=== PATIENT | male | born 1970 | race Caucasian/White ===

== ENCOUNTER 2016-10-13 17:26 | Emergency (ER) | payer OTHER ==
[~2016-10-13] VITALS: Ht 180.3 cm; Wt 124.5 kg
[~2016-10-13 17:26] MED LIST: BENADRYL ALLERG25 MG PO; BENADRYL25 MG PO; DIAZEPAM5 MG PO; FLOMAX0.4 MG PO; KEFLEX500 MG PO; LAMICTAL200 MG PO; LAMICTAL25 MG PO; LISINOPRIL40 MG PO; MECLIZINE HCL25 MG PO; NAPROXEN500 MG PO; NORCO 5/3251 TABLET PO; OSTEO BI-FLEX1 EAC2 PO; PLAVIX75 MG PO; SIMVASTATIN20 MG PO; TRILEPTAL300 MG PO; TRILEPTAL600 MG; TRILEPTAL600 MG PO; VALIUM5 MG PO; ZESTRIL40 MG PO; ZOCOR20 MG PO
[2016-10-13 17:48] VITALS: BP 130/91
[2016-10-13] MEDS ORDERED: LIDODERM 5% P1 PATCH TD (18:32)
[2016-10-13] MEDS ORDERED: FLEXERIL10 MG PO (18:32)
[2016-10-13] MEDS ORDERED: NAPROXEN500 MG PO (18:32)
== END 2016-10-13 19:33 | disposition home or self-care (01) ==
LOC: EME 17:26
DX: M54.5 Low back pain (principal); I10 Essential (primary) hypertension; G40.909 Epilepsy, unspecified, not intractable, without status epilepticus
CPT/HCPCS: 99281; 99283

== ENCOUNTER 2017-01-23 18:08 | Emergency (ER) | payer OTHER ==
[~2017-01-23] VITALS: Ht 180.3 cm; Wt 123.2 kg
[~2017-01-23 18:08] MED LIST changes: +FLEXERIL10 MG PO; +LIDODERM 5% P1 PATCH TD
[2017-01-23 18:26] LABS: POINT-OF-CARE METER ID UU13113747
[2017-01-23 18:39] LABS: EOSINOPHIL (%) 0.5 % (0-5); IMMATURE GRANULOCYTE (%) 0.3 % (0.0-0.7); LYMPHOCYTE COUNT 1.5 K/uL (1.0-2.8); MCH 31.5 PG (29.0-34.0); MCHC 34.5 G/DL (30.0-36.0); MCV 91.3 FL (86-99); MEAN PLAT.VOLUME 8.9 uM^3 (9.0-12.4); MONOCYTE (%) 5.7 % (3-12); MONOCYTE COUNT 0.3 K/uL (0-0.8); NEUTROPHIL (%) 67.6 % (45-76); PLATELET COUNT 217 K/uL (156-360); RBC DIS.WIDTH-CV 11.6 % (11.8-14.6); RBC DIS.WIDTH-SD 38.8 % (39-53); RED BLOOD COUNT 4.82 M/uL (4.00-5.50); WHITE BLOOD COUNT 5.9 K/uL (4.1-10.2)
[2017-01-23 18:56] LABS: CHLORIDE 102 mEq/L (99-109); POTASSIUM 3.9 mEq/L (3.7-5.4); SODIUM 136 mEq/L (136-147)
[2017-01-23 18:58] LABS: GLUCOSE 124 mg/dL (70-99)
[2017-01-23 18:59] LABS: ANION GAP 11 MEQ/L (2-14)
[2017-01-23 19:01] LABS: GFR ESTIMATE (CALCULATED) > 59 mL/min/
[2017-01-23 19:02] LABS: UREA NITROGEN (BUN) 11 mg/dL (9-23)
[2017-01-23 19:43] LABS: SAMPLE HEMOLYSIS CHECK 0; SAMPLE ICTERIC CHECK 0; SAMPLE LIPEMIA CHECK 0
[2017-01-23] MEDS ORDERED: KEPPRA1000 MG PO (21:04)
[2017-01-23] MEDS ORDERED: TRILEPTAL300 MG PO (21:06)
[2017-01-23 21:15] VITALS: BP 119/87
== END 2017-01-23 21:30 | disposition home or self-care (01) ==
LOC: EME 18:08
PROVIDERS: Emergency Medicine
DX: R56.9 Unspecified convulsions (principal); E78.5 Hyperlipidemia, unspecified; I10 Essential (primary) hypertension
CPT/HCPCS: 80048; 80156; 82948; 85025; 99281; 99284; J2405

== ENCOUNTER 2017-02-03 18:36 | Emergency (ER) | payer OTHER ==
[~2017-02-03] VITALS: Ht 180.3 cm; Wt 122.7 kg
[~2017-02-03 18:36] MED LIST changes: +KEPPRA1000 MG PO
[2017-02-03 19:58] LABS: MCH 31.9 PG (29.0-34.0); MCV 93.8 FL (86-99); MEAN PLAT.VOLUME 9.4 uM^3 (9.0-12.4); PLATELET COUNT 258 K/uL (156-360); RBC DIS.WIDTH-CV 11.9 % (11.8-14.6); RBC DIS.WIDTH-SD 40.7 % (39-53); RED BLOOD COUNT 5.01 M/uL (4.00-5.50); WHITE BLOOD COUNT 5.5 K/uL (4.1-10.2)
[2017-02-03 20:11] LABS: CHLORIDE 109 mEq/L (99-109)
[2017-02-03 20:12] LABS: POTASSIUM 4.1 mEq/L (3.7-5.4); SODIUM 142 mEq/L (136-147)
[2017-02-03 20:14] LABS: GLUCOSE 108 mg/dL (70-99)
[2017-02-03 20:15] LABS: ANION GAP 8 MEQ/L (2-14)
[2017-02-03 20:16] LABS: TOTAL BILIRUBIN 0.2 mg/dL (0.0-1.0)
[2017-02-03 20:17] LABS: ALKALINE PHOSPHATASE 100 IU/L (3-129); GFR ESTIMATE (CALCULATED) > 59 mL/min/
[2017-02-03 20:19] LABS: UREA NITROGEN (BUN) 14 mg/dL (9-23)
[2017-02-03 20:28] LABS: ADD MIUA? NO; BILIRUBIN NEGATIVE; BLOOD NEGATIVE; COLOR YELLOW ((YELLOW)); GLUCOSE (STRIP) NEGATIVE; KETONES NEGATIVE; LEUKOCYTES NEGATIVE; NITRITE NEGATIVE; PROTEIN (STRIP) NEGATIVE; SPECIFIC GRAVITY 1.023 (1.000-1.030); UCUL ADDED? NO; UROBILINOGEN 0.2 MG/DL (0.2-1.0)
[2017-02-03 22:50] VITALS: BP 165/85
== END 2017-02-03 22:51 | disposition home or self-care (01) ==
LOC: EME 18:36
DX: R19.7 Diarrhea, unspecified (principal); R11.2 Nausea with vomiting, unspecified; I10 Essential (primary) hypertension; E78.5 Hyperlipidemia, unspecified
CPT/HCPCS: 80053; 81003; 85027; 87493; 87506; 99281; 99284

== ENCOUNTER 2017-05-17 15:01 | Emergency (ER) | payer OTHER ==
[~2017-05-17] VITALS: Ht 180.3 cm; Wt 120.4 kg
[2017-05-17 15:51] VITALS: BP 141/95
[2017-05-17] MEDS ORDERED: NORCO 7.5/321 TABLET PO (18:31)
[2017-05-17] MEDS ORDERED: MOTRIN800 MG PO (18:31)
[2017-05-17] MEDS ORDERED: VALIUM5 MG PO (18:31)
== END 2017-05-17 18:38 | disposition home or self-care (01) ==
LOC: EME 15:01
DX: S29.012A Strain of muscle and tendon of back wall of thorax, initial encounter (principal); V59.50XA Passenger in pick-up truck or van injured in collision with unspecified motor vehicles in traffic accident, initial encounter; Y92.410 Unspecified street and highway as the place of occurrence of the external cause; M51.34 Other intervertebral disc degeneration, thoracic region
CPT/HCPCS: 72070

== ENCOUNTER 2017-11-16 11:40 | Emergency (ER) | payer OTHER ==
[~2017-11-16] VITALS: Ht 180.3 cm; Wt 122.1 kg
[~2017-11-16 11:40] MED LIST changes: +MOTRIN800 MG PO; +NORCO 7.5/321 TABLET PO
[2017-11-16 12:56] LABS: APPEARANCE CLEAR ((CLEAR)); BILIRUBIN NEGATIVE; BLOOD NEGATIVE; COLOR YELLOW ((YELLOW)); GLUCOSE (STRIP) NEGATIVE; KETONES NEGATIVE; LEUKOCYTES NEGATIVE; NITRITE NEGATIVE; PROTEIN (STRIP) NEGATIVE; SPECIFIC GRAVITY 1.023 (1.000-1.030); UCUL ADDED? NO; UROBILINOGEN 0.2 MG/DL (0.2-1.0)
[2017-11-16 14:17] VITALS: BP 130/85
== END 2017-11-16 14:19 | disposition home or self-care (01) ==
LOC: EME 11:40
PROVIDERS: Nurse Practitioner Family
DX: R33.9 Retention of urine, unspecified (principal); I10 Essential (primary) hypertension; E78.5 Hyperlipidemia, unspecified; R56.9 Unspecified convulsions; Z88.1 Allergy status to other antibiotic agents
CPT/HCPCS: 81003; 99281; 99283

== ENCOUNTER 2017-12-07 05:47 | Day surgery (SDC) | payer OTHER ==
[~2017-12-07] VITALS: Ht 180.3 cm; Wt 122.5 kg
[~2017-12-07 05:47] MED LIST changes: +KEPPRA500 MG PO
[2017-12-07 06:16] LABS: BASOPHIL (%) 0.6 % (0-1); EOSINOPHIL (%) 2.5 % (0-5); EOSINOPHIL COUNT 0.1 K/uL (0-0.3); HEMATOCRIT 47.5 % (38.0-50.0); HEMOGLOBIN 16.4 G/DL (12.5-16.6); IMMATURE GRANULOCYTE (%) 0.4 % (0.0-0.7); LYMPHOCYTE (%) 39.2 % (15-42); LYMPHOCYTE COUNT 2.1 K/uL (1.0-2.8); MCHC 34.5 G/DL (30.0-36.0); MCV 92.8 FL (86-99); MONOCYTE (%) 6.8 % (3-12); MONOCYTE COUNT 0.4 K/uL (0-0.8); NEUTROPHIL (%) 50.5 % (45-76); NEUTROPHIL COUNT 2.7 K/uL (1.8-6.4); PLATELET COUNT 241 K/uL (156-360); RBC DIS.WIDTH-CV 11.9 % (11.8-14.6); RBC DIS.WIDTH-SD 40.7 % (39-53); RED BLOOD COUNT 5.12 M/uL (4.00-5.50); WHITE BLOOD COUNT 5.3 K/uL (4.1-10.2)
[2017-12-07 06:25] LABS: ALBUMIN 4.7 g/dL (3.2-4.8); CHLORIDE 104 mEq/L (99-109); POTASSIUM 3.8 mEq/L (3.7-5.4); SODIUM 143 mEq/L (136-147)
[2017-12-07 06:28] LABS: GLUCOSE 104 mg/dL (70-99); TOTAL PROTEIN 7.9 g/dL (6.4-8.3)
[2017-12-07 06:29] LABS: TOTAL BILIRUBIN 0.6 mg/dL (0.0-1.0)
[2017-12-07 06:31] LABS: ALKALINE PHOSPHATASE 116 IU/L (3-129); CREATININE 1.1 mg/dL (0.6-1.3); GFR ESTIMATE (CALCULATED) > 59 mL/min/ (58.99-99999)
[2017-12-07 06:32] LABS: UREA NITROGEN (BUN) 14 mg/dL (9-23)
[2017-12-07 06:33] LABS: AST (GOT) 17 IU/L (2-34)
[2017-12-07 06:34] LABS: ALT (GPT) 23 IU/L (3-49)
[2017-12-07 06:39] VITALS: BP 116/74
[2017-12-07 09:55] VITALS: BP 117/80
[2017-12-07 11:10] VITALS: BP 114/72
== END 2017-12-07 11:37 | disposition home or self-care (01) ==
LOC: SDC 05:47
PROVIDERS: Urology
PROC: 0T7D8ZZ Dilation of Urethra, Via Natural or Artificial Opening Endoscopic (ICD-10-PCS; principal; 2017-12-07)
DX: N35.9 Urethral stricture, unspecified (principal); G40.909 Epilepsy, unspecified, not intractable, without status epilepticus; F17.220 Nicotine dependence, chewing tobacco, uncomplicated; Z88.1 Allergy status to other antibiotic agents
CPT/HCPCS: 80053; 85025; 93005; J0690; J1100; J1885; J2250; J2405; J3010